=== PATIENT | female | born 2005 | race Caucasian/White ===

== ENCOUNTER 2023-12-29 03:52 | Emergency (ER) | payer BC, SELFPAY ==
--- NOTE | 2023-12-29 04:04 | DOWNTIME ---
There was a [employer] Client Director [employer] Downtime on 12/29/2023 from 0100 to 12/29/2023 at 0338. Downtime documentation of patient's care, including medication administrations, has been reconciled in the electronic record per guidelines. Refer to the
patient's paper chart under the miscellaneous tab to see printed paper medication records and downtime forms.
--- NOTE | 2023-12-29 04:09 | ED.GENMED ---
History of Present Illness
<RITO Holman - Last Filed: 12/29/23 04:12>
General
Chief Complaint: Musculo-Skeletal Complaint
Source: patient
Exam Limitations: none
Time Seen by Provider: 12/29/23 04:06
History of Present Illness
History of Present Illness:
18 YO F with no significant PMH that presents with complaints of intermittent burning, numbness, and tingling that travels from the right hand to mid upper arm that x 1 month. 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 Pt has not tried medication.
She states this has happened previously to her left hands and arm, but states it has always resolved after 3-5 days. She states she feels the numbness in her middle, fourth, and fifth right fingers.
Finger sensation intact B/L.
She does have a PCP appointment for tomorrow, but came in today due to her pain, which she rates 9/10.
Denies CP, SOB, N, V, and D. Denies back pain. Denies previous injuries.
Review of Systems
<RITO Holman - Last Filed: 12/29/23 04:12>
Review of Systems
Constitutional: Reports no symptoms
EENT: Reports no symptoms
Respiratory: Reports no symptoms
Cardiac: Reports no symptoms
ABD/GI: Reports no symptoms
: Reports no symptoms
Musculoskeletal: Reports muscle pain
Neurological: Reports headache
Psychiatric: Reports no symptoms
Phy Exam
<RITO Holman - Last Filed: 12/29/23 04:12>
Physical Exam
Physical Exam:
Normal s1 and s2
breath sounds are clear and equal b/l
General Physical Exam
General Presentation: well appearing
General age: appears stated age
General Skin: warm
General Habitus: normal
General Mental: alert
Cardiovascular Exam
Cardiovascular Exam: regular rate/rhythm
Pulmonary Exam
Pulmonary Exam: lungs clear
Musculoskeletal Exam
Musculoskeletal Exam: full ROM
Course
<RITO Holman - Last Filed: 12/29/23 04:12>
Orders/Labs/Results
Orders:
Orders
12/29/23 05:13
Ibuprofen [Motrin] 600 mg PO NOW STA
<Tad Graham DO - Last Filed: 12/29/23 05:28>
Orders/Labs/Results
Orders:
Orders
12/29/23 05:13
Ibuprofen [Motrin] 600 mg PO NOW STA
<ST RiverKS - Last Filed: 12/29/23 04:12>
MDM/Problems Addressed
Differential Diagnosis Includes:
Carpal tunnel syndrome, peripheral neuropathy
<RITO Holman - Last Filed: 12/29/23 04:12>
*Critical Care Note
Total Time (30-74mins, 75-104mins- exclusive of procedures): Not Applicable
ED Attending Note
<RITO Holman - Last Filed: 12/29/23 04:12>
-
Portions of this chart may have been created with voice recognition software.� Occasional wrong word or��sound alike� substitutions may have occurred due to the inherent limitations of voice recognition software.
<Tad Graham DO - Last Filed: 12/29/23 05:28>
ED Attending Note
Patient seen and examined by attending physician: Yes
I performed the substantive portion of visit, reviewed & personally made and approve the management plan that is documented in note by myself or NATHAN.: Yes
ED Attending Note:
Pleasant 18-year-old female who presents with right arm pain that is been present for the last month. She works in a [employer] and does repetitive lifting. She states that she has been having numbness and tingling that travels from the right
hand in the ulnar distribution up her arm to her bicep. Patient has not tried Tylenol or Motrin. She states that she has had similar sensations in her left arm in the recent past. Patient was seen in conjunction with the PA student. I have
reviewed and agree with the history and treatment plan presented. On my independent physical exam, patient is awake, alert, and oriented x3, minimal acute distress. Spurling's test is negative. Parveen's test is negative. 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 Skin is warm and dry. Rotator cuff muscles appear to be intact. Biceps appears to be intact. Paraspinal musculature on the right appears more tense than on the left. Plan is to try NSAIDs. Follow-up with
Ortho.
Discharge Plan
Departure
Patient Disposition: Home (Routine Discharge)
Date of Disposition: 12/29/23
Time of Disposition: :24
Patient with high blood pressure during this ER visit?: No
Condition: Good
Discharge Problem:
Arm paresthesia, right
Instructions: Paresthesia (DC)
Prescriptions:
New
diclofenac sodium 75 mg tablet,delayed release (DR/EC)
75 mg PO BID Qty: 10 0RF
Referrals:
[facility] [Provider Group] - As needed
UNKNOWN - PT DOES,NOT KNOW [Family Provider] -
Activity Restrictions/Additional Instructions:
It was a pleasure meeting you and taking part in your care. We hope for your continued healing and wellness.
Please read discharge instructions in their entirety. However, they are for general education and may not describe your exact diagnosis at discharge. Information on your ER visit and medical conditions were discussed with you along with appropriate
follow up information...
If indicated, please take your medications as instructed and indicated on discharge paperwork.
Please schedule a follow up appointment as directed. Call to schedule an appointment
Please return to the emergency department with ANY change in, persisting, or worsening of symptoms. If any of your symptoms do not improve, or persist, or become more severe within 6-12 hours, please return to the emergency department for further
care.
Please return to the emergency department if you develop a headache, neck pain/stiffness, fever greater than 100.4F, chest pain, shortness of breath, persistent nausea, vomiting, slurred speech, difficulty walking, numbness/tingling, weakness, signs
of infection or any other symptoms that are worrisome to you.
If you have any questions or concerns please do not hesitate to call the Hospital at or E-mail me directly at [email or web address]
Interventions
Interventions:
ED-Musculoskeletal Assessment Last Done: 12/29/23 04:06
Discharge Date and Time
Print Language: TANZANIAN
[2023-12-29] MEDS: MOTRIN 600 MG PO (05:30)
[2023-12-29 05:32] VITALS: BP 133/88
== END 2023-12-29 05:35 | disposition home or self-care (01) ==
LOC: EMR 03:52
PROVIDERS: EMERGENCY PHYSICIAN Student in an Organized Health Care Education/Training Program
DX: R20.2 Paresthesia of skin (principal); M79.18 Myalgia, other site; R51.9 Headache, unspecified; M79.601 Pain in right arm; R20.0 Anesthesia of skin
CPT/HCPCS: 99283

== ENCOUNTER 2024-04-30 01:16 | Emergency (ER) | payer BC, SELFPAY ==
[2024-04-30 01:19] VITALS: BP 176/114
[2024-04-30 02:01] VITALS: BP 154/92
[2024-04-30 02:02] VITALS: BP 154/92; BMI 36.1
[2024-04-30 02:56] LABS: % Basophils 0.7 % (0-2); % Eosinophils 1.3 % (0-6); % Immature Granulocytes 0.4 % (0-0.5); % Lymphocytes 45.4 % (20.5-51.1); % Monocytes 8.7 % (1.7-9.3); % Neutrophils 43.5 % (42.2-75.2); Absolute Basophils 0.1 10^3/uL (0-0.2); Absolute Eosinophils 0.2 10^3/uL (0-0.7); Absolute Lymphocytes 5.1 10^3/uL (1.2-3.4); Absolute Neutrophils 4.9 10^3/uL (1.4-6.5); Hematocrit 35.6 % (37.0-47.0); Hemoglobin 12.3 g/dL (12.0-16.0); Mean Corp Hgb Conc. 34.6 g/dL (33.0-37.0); Mean Corpuscular Hgb 25.8 pg (27.0-31.0); Mean Corpuscular Volume 74.8 fL (81.0-99.0); Mean Platelet Volume 8.1 fL (7.4-10.4); Nucleated Red Blood Cells % 0 %; Platelet Count 402 10^3/uL (130-400); Red Blood Cell Count 4.76 10^6/uL (4.20-5.40); White Blood Cell Count 11.3 10^3/uL (4.8-10.8)
[2024-04-30 03:00] VITALS: BP 141/98
[2024-04-30 03:06] LABS: HCG, Serum Qualitative Screen Negative
[2024-04-30 03:09] LABS: ALT (SGPT) 40 U/L (0-35); AST (SGOT) 33 U/L (14-36); Albumin 4.9 g/dl (3.5-5.0); Alkaline Phosphatase 69 U/L (38-126); Blood Urea Nitrogen 15 mg/dl (7-17); Calcium 9.8 mg/dl (8.4-10.2); Carbon Dioxide 21 mmol/L (22-30); Chloride 104 mmol/L (98-107); Estimated Creatinine Clearance > 125 ml/min; Glucose 101 mg/dl (70-99); Potassium 3.9 mmol/L (3.5-5.1); Sodium 143 mmol/L (135-145); Total Bilirubin 0.2 mg/dl (0.2-1.3); Total Protein 8.1 g/dl (6.3-8.2); eGFR > 60.00
[2024-04-30 03:40] LABS: TSH Reflex To Free T4 3.45 uIU/ml (0.47-4.68)
--- NOTE | 2024-04-30 03:59 | ED.GENMED ---
History of Present Illness
<RITO Muhammad - Last Filed: 04/30/24 04:46>
General
Chief Complaint: Heart Rate Problem
Source: patient
Exam Limitations: none
Time Seen by Provider: 04/30/24 04:00
Nursing documentation reviewed up to this point in time: agreed with
History of Present Illness
History of Present Illness:
Patient is a 18 yo F w/ no significant PMH who present to ED w/ complain of tachycardia. Reports she was out at [facility] w/ her father when she noticed HR was 140. Father said that is high and maybe she should get it checked out. Reports HR
was consistent >140bmp while out. Currently 95 while laying in bed. Notes that when she got up to fix gown her HR went from 95 to 110. She denies any RACHEL, dizziness, N/V/D/C, stomach pain, urinary changes, SOB, chest pains, cough, congestion,
rhinorrhea, fever, and chills. Notes she just started working out this week and HR gets up to almost 200 on treadmill. Denies any known medical problems. Denies family hx of tachycardia or other heart disease. Reports severe anxiety in mother. Pt
thinks she has anxiety but is not officially diagnosed. Reports vaping for 6yrs but switched to non-nicotine about 3 mo ago in effort to quit. Denies alcohol or drugs.
Review of Systems
<RITO Muhammad - Last Filed: 04/30/24 04:46>
Review of Systems
Constitutional: Denies fever, fatigue or chills
EENT: Denies sore throat or runny nose
Respiratory: Denies cough or trouble breathing
Cardiac: Denies chest pain or palpitations
ABD/GI: Denies abdominal pain, nausea, vomiting, diarrhea or constipated
: Denies dysuria
Musculoskeletal: Denies joint pain, muscle pain or edema
Skin: Denies itching or rash
Neurological: Denies dizzy or headache
Phy Exam
<[facility] - Last Filed: 04/30/24 04:46>
General Physical Exam
General Presentation: well appearing
General age: appears stated age
General Skin: warm and dry
General Habitus: obese
General Mental: alert
Eye Exam
Eye Exam: PERRL
Cardiovascular Exam
Cardiovascular Exam: regular rate/rhythm, no edema, no gallop and no murmur
Pulmonary Exam
Pulmonary Exam: lungs clear, no respiratory distress, no rales, chest non tender, no crackles, no rhonchi, no wheezing and no cough
Gastrointestinal Exam
Gastrointestinal Exam: normal bowel sounds, non tender, soft, no organomegaly and non distended
Neurological Exam
Neurological Exam: alert, oriented x3 and speech normal
Musculoskeletal Exam
Musculoskeletal Exam: no edema
Course
<[facility] - Last Filed: 04/30/24 04:46>
Orders/Labs/Results
Orders:
Orders
04/30/24 01:23
ECG [Electrocardiogram (*1)] Urgent
Reason for Study: Tachycardia
EKG- Treatment ONCE
04/30/24 02:15
Test Result ONCE
04/30/24 02:26
Complete Blood Count/With Diff Urgent
Comprehensive Metabolic Panel Urgent
HCG, Serum Qualitative Screen Urgent
TSH Reflex To Free T4 Urgent
Abnormal Lab Results
04/30/24
02:26
WBC 11.3 H 10^3/uL
(4.8-10.8)
Hct 35.6 L %
(37.0-47.0)
MCV 74.8 L fL
(81.0-99.0)
MCH 25.8 L pg
(27.0-31.0)
Plt Count 402 H 10^3/uL
(130-400)
Absolute Lymphs (auto) 5.1 H 10^3/uL
(1.2-3.4)
Absolute Monos (auto) 1.0 H 10^3/uL
(0.1-0.6)
Carbon Dioxide 21 L mmol/L
(22-30)
Creatinine 0.5 L mg/dL
(0.6-1.0)
Glucose 101 H mg/dl
(70-99)
ALT 40 H U/L
(0-35)
04/30/24 02:26
04/30/24 02:26
Vital Signs
Initial and Last Documented VS:
Initial Vital Signs
Temp Pulse Resp BP Pulse Ox
98.3 F 98 20 176/114 100
04/30/24 01:19 04/30/24 01:19 04/30/24 01:19 04/30/24 01:19 04/30/24 01:19
Last Documented Vital Signs
Temp Pulse Resp BP Pulse Ox
98.3 F 102 20 157/94 95
04/30/24 01:19 04/30/24 04:15 04/30/24 04:15 04/30/24 04:00 04/30/24 04:15
<Elza Maradiaga, DO - Last Filed: 04/30/24 04:33>
Orders/Labs/Results
Orders:
Orders
04/30/24 01:23
ECG [Electrocardiogram (*1)] Urgent
Reason for Study: Tachycardia
EKG- Treatment ONCE
04/30/24 02:15
Test Result ONCE
04/30/24 02:26
Complete Blood Count/With Diff Urgent
Comprehensive Metabolic Panel Urgent
HCG, Serum Qualitative Screen Urgent
TSH Reflex To Free T4 Urgent
Abnormal Lab Results
04/30/24
02:26
WBC 11.3 H 10^3/uL
(4.8-10.8)
Hct 35.6 L %
(37.0-47.0)
MCV 74.8 L fL
(81.0-99.0)
MCH 25.8 L pg
(27.0-31.0)
Plt Count 402 H 10^3/uL
(130-400)
Absolute Lymphs (auto) 5.1 H 10^3/uL
(1.2-3.4)
Absolute Monos (auto) 1.0 H 10^3/uL
(0.1-0.6)
Carbon Dioxide 21 L mmol/L
(22-30)
Creatinine 0.5 L mg/dL
(0.6-1.0)
Glucose 101 H mg/dl
(70-99)
ALT 40 H U/L
(0-35)
04/30/24 02:26
04/30/24 02:26
Vital Signs
Initial and Last Documented VS:
Initial Vital Signs
Temp Pulse Resp BP Pulse Ox
98.3 F 98 20 176/114 100
04/30/24 01:19 04/30/24 01:19 04/30/24 01:19 04/30/24 01:19 04/30/24 01:19
Last Documented Vital Signs
Temp Pulse Resp BP Pulse Ox
98.3 F 102 20 157/94 95
04/30/24 01:19 04/30/24 04:15 04/30/24 04:15 04/30/24 04:00 04/30/24 04:15
<RITO Muhammad - Last Filed: 04/30/24 04:46>
*Critical Care Note
Total Time (30-74mins, 75-104mins- exclusive of procedures): Not Applicable
<Elza Maradiaga DO - Last Filed: 04/30/24 04:33>
*Pulse Oximetry
Patient hypoxic: no
*EKG
Interpreted by ED Provider?: Yes
Interpretation: normal
Comparison EKG: no comparison EKG present
Rate: normal
Rhythm: sinus
[place]: normal axis
Interval: normal interval
QRS Pattern: normal QRS
Ischemia: no ischemia
*Manager Of Financial Reporting Interpretation
Rate: normal
Interpretation: normal
Rhythm: sinus
ED Attending Note
<ST JbPA - Last Filed: 04/30/24 04:46>
-
Portions of this chart may have been created with voice recognition software.� Occasional wrong word or��sound alike� substitutions may have occurred due to the inherent limitations of voice recognition software.
<Elza Maradiaga DO - Last Filed: 04/30/24 04:33>
ED Attending Note
Patient seen and examined by attending physician: Yes
I performed the substantive portion of visit, reviewed & personally made and approve the management plan that is documented in note by myself or NATHAN.: Yes
ED Attending Note:
This is a 18-year-old overweight female who presents tonight with concerns that her Apple Watch has been notifying her of elevated heart rate in the 140s to 160s while at rest. She admits to rare palpitations but intermittent elevated heart rate
has been an ongoing issue over the past several months. This past week she began an exercise regimen and heart rate has trended up to 180 with exercise. She did mention her elevated heart rate while on a hay ride with her father and he recommended
she come to the ED for evaluation. She denies dizziness or lightheadedness, denies chest pain, denies abdominal pain. Denies risk of . No leg pain or swelling.
She does vape nicotine but denies drug use. She has been attempting to limit her nicotine vaping.
GENERAL: 18-year-old overweight female appears her stated age, awake and alert, pleasant, appears in no acute distress.
EYE: anicteric
NECK: Supple, nontender, no meningismus, no significant adenopathy.
ENT: oral mucosa is moist. No rhinorrhea.
CARDIAC: Regular rate and rhythm. no murmur.
LUNGS: Clear breath sounds bilaterally, no acute respiratory distress, no wheezes/rales/rhonchi
ABDOMEN: Soft, nondistended, without focal tenderness
NEUROLOGICAL: Alert and oriented x3, no focal neuro deficits. Gait is martínez and steady.
SKIN: Warm and dry, normal color, skin intact. No rash.
MUSCULOSKELETAL: No C/C/E. peripheral pulses are full and equal b/l. No palpable tenderness.
PSYCH: Normal and appropriate interaction.
Patient presents with concerns for elevated heart rate, intermittent episodes over the past several months. Notes her smart watch has been notifying her of heart rate in the 140s to 160s she does admit to rare palpitations but overall has remained
asymptomatic.
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
Labs are unremarkable including normal TSH.
She admits that her Apple Watch has not alarmed, has not signified it elevated heart rate since arrival to the ED.
There is some concern for intermittent tachycardia thus will refer to cardiology for follow-up.
Encouraged to continue to limit her nicotine vaping as this may be a contributing factor.
Discharge Plan
Departure
Patient Disposition: Home (Routine Discharge)
Date of Disposition: 04/30/24
Time of Disposition: 04:24
Patient with high blood pressure during this ER visit?: Yes
Discharge Problem:
Palpitations
Instructions: Palpitations (DC), BLOOD PRESSURE
Prescriptions:
No Action
No Current Medications
0
Referrals:
Dasia Levy MD [Active] - Call in 1-3 days for appt
Shelbi Ramirez DO [Family Provider] -
Interventions
Interventions:
*Risk Screen - Suicide Last Done: 04/30/24 01:19
*General Assessment Last Done: 04/30/24 02:02
*Neglect/Abuse Screening Last Done: 04/30/24 01:19
ED- Fall Risk Assessment Last Done: 04/30/24 04:31
*ED COVID-19 Vaccine History Last Done: 04/30/24 02:02
*Nursing Disposition Last Done: 04/30/24 04:31
ED- Cardiac Assessment Last Done: 04/30/24 02:02
ED- Pulmonary Assessment Last Done: 04/30/24 02:02
Discharge Date and Time
Discharge Date/Time: 04/30/24 04:31
Print Language: BARBADIAN
[2024-04-30 04:00] VITALS: BP 157/94
== END 2024-04-30 04:31 | disposition home or self-care (01) ==
LOC: EMR 01:16
PROVIDERS: EMERGENCY PHYSICIAN Emergency Medicine; FAMILY PHYSICIAN Family Medicine
DX: R00.2 Palpitations (principal); R03.0 Elevated blood-pressure reading, without diagnosis of hypertension
CPT/HCPCS: 99284; 80053; 84443; 84703; 85025; 93005

== ENCOUNTER 2024-07-11 18:08 | Emergency (ER) | payer BC, SELFPAY ==
[2024-07-11 18:14] VITALS: BP 127/97; BMI 32.4
[2024-07-11 19:25] LABS: COVID-19 Antigen Negative (Negative)
[2024-07-11] MEDS: TYLENOL 1000 MG PO (21:14)
[2024-07-11] MEDS: MOTRIN 800 MG PO (21:14)
[2024-07-11 21:19] VITALS: BP 140/88
--- NOTE | 2024-07-11 21:36 | ED.GENMED ---
History of Present Illness
General
Chief Complaint: Breathing Problem
Source: patient
Exam Limitations: none
Time Seen by Provider: 07/11/24 20:36
Nursing documentation reviewed up to this point in time: agreed with
History of Present Illness
History of Present Illness:
pt is a 18 y/o F with h/o tachycardia
here with URI sxs x 5 days
fever, headache, congestion, slight cough, bodyaches
has been taking OTC cold an dsinus meds
nothing recently
felt a little sob/fatigued earlier
boyfriend had same sypmtoms but he got better quickly
no neck stiffness, cp, vomiting, diarrhea
Past History
Past History
ED Past Medical History: None
ED Past Surgical History: None
Social History
Tobacco: Non-smoker
Alcohol: None
Drug: None
Personal: Single
Living: with family
Employment: Employed
Review of Systems
Review of Systems
Allergies reviewed?: Yes
All Other Systems: Not applicable
Phy Exam
Physical Exam
Physical Exam:
GENERAL: Alert , in no apparent distress
EYE: pupils equal and reactive
NECK: Supple
ENT: b/l TM s clear, pharynx erythematous but no tonsillar hypertrophy or exudates
CARDIAC: Regular rate and rhythm, no edema
LUNGS: Clear breath sounds bilaterally, no acute respiratory distress, no wheezes/rales/rhonchi, occ cough
ABDOMEN: Soft, without focal tenderness, no r/g, no cvat, normal bowel sounds
NEUROLOGICAL: Alert and oriented, no focal neuro deficits
SKIN: Warm and dry, skin intact.
MUSCULOSKELETAL: No edema, well perfused.
PSYCH: Normal and appropriate interaction.
Course
Orders/Labs/Results
Orders:
Orders
07/11/24 18:18
CR Chest - 2 Views Urgent
Comment:
Reason For Exam: Short of breath/Pneumonia r/o
07/11/24 18:22
COVID-19 Antigen Urgent
Source: Nasal Swab
Influenza A+B Rapid Molecular Urgent
REYMUNDO Source: Nasal Swab
Specimen Description:
07/11/24 21:10
Acetaminophen [Tylenol] 1,000 mg PO NOW STA
Ibuprofen [Motrin] 800 mg PO NOW STA
Vital Signs
Initial and Last Documented VS:
Initial Vital Signs
Temp Pulse Resp BP Pulse Ox
37.8 C 128 20 127/97 97
07/11/24 18:14 07/11/24 18:14 07/11/24 18:14 07/11/24 18:14 07/11/24 18:14
Last Documented Vital Signs
Temp Pulse Resp BP Pulse Ox
39.5 C H 115 20 140/88 98
07/11/24 21:19 07/11/24 21:19 07/11/24 21:19 07/11/24 21:19 07/11/24 21:19
MDM/Problems Addressed
Differential Diagnosis Includes:
URI, influenza, COVID, strep
MDM/Problems Addressed:
18-year-old female healthy, some underlying tachycardia at baseline presents with 5 days of URI symptoms mostly with mild congestion, cough, little short of breath, fever and aches. Her boyfriend has the same thanks. She thinks maybe she has the
flu. She has not had any vomiting or diarrhea, chest pain, syncope, neck stiffness. On exam she is febrile for me 103.1 and less tachycardic than on arrival, normotensive, nontoxic-appearing, other than tachycardia on exam in the low 100s she has
no other findings concerning. Her flu was positive.
Chest x-ray independently reviewed by me was negative
COVID-negative.
Patient was given Tylenol and ibuprofen and will be discharged home stable for discharge
*Critical Care Note
Total Time (30-74mins, 75-104mins- exclusive of procedures): Not Applicable
ED Attending Note
-
Portions of this chart may have been created with voice recognition software.� Occasional wrong word or��sound alike� substitutions may have occurred due to the inherent limitations of voice recognition software.
Discharge Plan
Departure
Patient Disposition: Home (Routine Discharge)
Date of Disposition: 07/11/24
Time of Disposition: 21:41
Patient with high blood pressure during this ER visit?: No
Covid-19: Negative COVID-19
Discharge Problem:
Influenza A
Instructions: Flu in adults - ED discharge instructions
Prescriptions:
No Action
No Current Medications
0
Referrals:
Pb Swartz, DO [Family Provider] - Follow up in 2-3 days
Stand Alone Forms: Return to Work
Activity Restrictions/Additional Instructions:
You tested positive for the flu. Stay hydrated. Take Tylenol every 6 hours, ibuprofen every 8 hours. You can use a cough medicine or decongestant as well. Your symptoms should last 5 to 7 days. Follow-up with your doctor. Return for
significant worsening of symptoms like passing out, neck stiffness, confusion, worsening shortness of breath, dehydration or lethargy or any concern
Interventions
Interventions:
*Risk Screen - Suicide Last Done: 07/11/24 20:49
*General Assessment Last Done: 07/11/24 20:49
*Neglect/Abuse Screening Last Done: 07/11/24 20:49
*ED COVID-19 Vaccine History Last Done: 07/11/24 18:14
ED- Cardiac Assessment Last Done: 07/11/24 20:49
ED- Pulmonary Assessment Last Done: 07/11/24 20:49
Discharge Date and Time
Print Language: ALBANIAN
== END 2024-07-11 22:26 | disposition home or self-care (01) ==
LOC: EMR 18:08
PROVIDERS: EMERGENCY PHYSICIAN Emergency Medicine; FAMILY PHYSICIAN Family Medicine
DX: J10.1 Influenza due to other identified influenza virus with other respiratory manifestations (principal)
CPT/HCPCS: 99283; 71046; 87502; 87811